=== PATIENT | male | born 1980 | race Caucasian/White ===

== ENCOUNTER 2016-11-22 00:46 | Emergency (ER) | payer BC ==
[2016-11-22 00:51] VITALS: BP 116/83; PULSE 54; TEMP 98.6; BMI 23.1
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
== END 2016-11-22 01:11 | disposition home or self-care (01) ==
LOC: FER 00:46
PROC: 0HQKXZZ Repair Right Lower Leg Skin, External Approach (ICD-10-PCS; principal; 2016-11-22)
DX: S81.812A Laceration without foreign body, left lower leg, initial encounter (principal); W25.XXXA Contact with sharp glass, initial encounter; Y93.89 Activity, other specified; Y92.511 Restaurant or cafe as the place of occurrence of the external cause
CPT/HCPCS: 99281-25